=== PATIENT | female | born 1980 | race Two or more races ===

== ENCOUNTER 2017-03-21 22:06 | Emergency (ER) | payer SELFPAY ==
[~2017-03-21] VITALS: Ht 162.6 cm; Wt 108.5 kg
[2017-03-21 22:07] VITALS: BP 161/82
[2017-03-21] MEDS ORDERED: HYDROcodone/APAP 5/325 TABLET PO ONE (23:00)
== END 2017-03-21 23:44 | disposition home or self-care (01) ==
LOC: ED 23:17
DX: H60.91 Unspecified otitis externa, right ear (principal)
CPT/HCPCS: 99283